=== PATIENT | female | born 1985 | race Caucasian/White ===

== ENCOUNTER 2021-12-24 03:42 | Emergency (ER) | payer OTHER ==
[~2021-12-24] VITALS: Ht 170.2 cm; Wt 61.2 kg
--- NOTE | 2021-12-24 03:52 | NUR ---
DR. BARGER AT BEDSIDE, MSE IN PROGRESS.
[2021-12-24 04:24] LABS: HEMATOCRIT 39.3 % (31.2-41.9); MEAN CORPUSCULAR HEMOGLOBIN 29.8 uug (24.7-32.8); MEAN CORPUSCULAR VOLUME 90.1 fL (75.5-95.3); PLATELET COUNT (AUTO) 275 K/uL (179-408)
[2021-12-24 04:28] LABS: CREATININE 0.7 mg/dL (0.6-1.3); POTASSIUM 3.6 mmol/L (3.5-5.1)
--- NOTE | 2021-12-24 04:45 | NUR ---
PT AWAKE IN BED, RESTING COMFORTABLY, NOTED TO BE USING HER CELL PHONE.
--- NOTE | 2021-12-24 05:53 | NUR ---
Patient discharged to home in stable condition. Written and verbal after care instructions given. Patient verbalizes understanding of instructions. Stressed follow up or return to ER for worsening s/s. No changes in LOC. Steady gait. Denies any pain/discomfort upon discharge. No SOB or labored breathing. Denies any SANFORD/dizziness.
[2021-12-24 05:58] VITALS: BP 112/63
== END 2021-12-24 05:59 | disposition home or self-care (01) ==
LOC: ER 03:48
DX: G40.909 Epilepsy, unspecified, not intractable, without status epilepticus (principal)
CPT/HCPCS: 36415; 83735; 85025; A4663